=== PATIENT | female | born 1965 | race African-American/Black ===

== ENCOUNTER 2021-09-20 19:29 | Emergency (ER) | payer OTHER ==
[~2021-09-20] VITALS: Ht 167.6 cm; Wt 68.0 kg
[2021-09-20 19:45] VITALS: BP 135/78
--- NOTE | 2021-09-20 20:24 | NUR ---
WILLIAMSID SWABBED, SENT TO LAB.
== END 2021-09-20 20:56 ==
LOC: ER 19:35
DX: R05.9 Cough, unspecified (principal); I10 Essential (primary) hypertension; Z59.01 Sheltered homelessness; Z20.822 Contact with and (suspected) exposure to COVID-19
CPT/HCPCS: 87426; 99283; C9803